=== PATIENT | male | born 1995 | race Caucasian/White ===

== ENCOUNTER 2017-08-07 09:35 | Emergency (ER) | payer SELFPAY ==
[2017-08-07 09:41] VITALS: BP 119/67; BMI 23.0
[2017-08-07] MEDS ORDERED: XYLOCAINE 1 % (PLAIN) ONE (11:00)
--- NOTE | 2017-08-07 11:01 | DR.GENAD ---
HPI - PCP Primary Care Physician: NFD - Complaint/Symptoms Chief Complaint Doctors Comments: Patient complains of lesion under left arm for the past two weeks getting worst. States he has gone to the hospital in [place] several times and he is taking Septra and using Bactroban oint without improvement. States he has been having fever and chills with severe pain in the left arm with problems elevating his arm due to pain. states he does not have a local doctor. States the pain is 10 of 10. He is unsure of his last tetanus. Chief Complaint:: PT WAS SEEN IN [facility] FOUR DAYS AGO AND HE WAS GIVEN ABX FOR ABCESS/REDNESS UNDER HIS LEFT ARM AND HE STATES IT IS GETTING WORSE". Self Treatment fo Chief Complaint: WARMCOMPRESSES... ABX, BACTROBAN - Nurses notes reviewed Nurses Notes Review: Yes - Source History Provided: Patient - Mode of Arrival Mode of Arrival: Ambulatory - Timing Onset of Chief Complaint: 07/26/17 Came on: Gradually - Duration Duration: Constant How lon Duration: Weeks - Location Location: left axillary - Severity Severity: Moderate - Modifying Factors Worsens:: movement Improves:: nothing PMH - PMH Past Medical History: No Past Surgical History: Yes Past Surgical History Comment: LEFT KNEE SURGERY TIMES FOUR .. - Family History History of Family Medical Conditions: Yes Family Medical History: Diabetes Mellitus, [place] - Social History Does patient currently use any type of tobacco product: Yes Have you used tobacco products in the last 12 months: Yes Type of Tobacco Use: Cigarettes How many years tobacco product used: 8 Does any household member use tobacco: No Alcohol Use: Rarely Do you use any recreational Drugs:: No Lives With: Family Lives Where: Home - infectious screening In the last 2 months have you had wt loss of >10#?: NO Have you had fever, night sweats or hemotysis?: No Have you traveled outside the country in the last 6 months?: No Isolation: Standard ROS - Review of Systems Constitutional: No Symptoms Reported, Chills, Fever Eyes: No Symptoms Reported ENTM: No Symptoms Reported Respiratoy: No Symptoms Reported Cardiovascular: No Symptoms Reported Gastrointestinal/Abdominal: No Symptoms Reported. negative: See HPI, Abdominal Pain, Constipation, Diarrhea, Nausea, Vomiting, Food Intolerance, Other Genitourinary: No Symptoms Reported Neurological: No Symptoms Reported Musculoskeletal: No Symptoms Reported Integumentary: Lesions (left axillary 3 cm lesion) Hematologic/Lymphatic: No Symptoms Reported Endocrine: No Symptoms Reported Psychiatric: No Symptoms Reported PE - Vital Signs Vitals: Temperature 98.1 F Pulse Rate 90 Respiratory Rate 20 Blood Pressure 119/67 O2 Sat by Pulse Oximetry 96 - General Limitations: No Limitations General Appearance: Alert, In Distress (moderate) - Head Head Exam: Normal Inspection, Atraumatic, Normocephalic - Eyes Eye exam: Normal Appearance, PERRL, EOMI. negative: Scleral Icterus, Conjunctival Injection, Nystagmus, Miosis, Mydrasis, Periorbital Swelling, Periorbital Tenderness, Other - ENT ENT Exam: Normal Exam, Normal Oropharynx, Normal External Ear Exam, Mucous Membranes Moist, TM's Normal Bilaterally External Ear Exam: Normal External Inspection TM/Canal Exam: Bilateral Normal Nose Exam: Normal Nose Exam Mouth Exam: Normal Inspection Throat Exam: Normal Inspection - Neck Neck Exam: Normal Inspection, Full ROM, Trachea Midline - Chest Chest Inspection: Normal Inspection, Symmetric Chest Wall Rise, Tenderness ( left axillary with erythema, 3 cm nodule left axillary, soft, tender; no discharge), Abscess - Respiratory Respiratory Exam: Normal Lung Sounds Bilat Respiratory Exam: Bilateral Clear to Auscultation - Cardiovascular Cardiovascular Exam: Regular Rate, Normal Rhythm, Normal Heart Sounds - Abdominal Exam Abdominal Exam: Normal Inspection, Normal Bowel Sounds, Soft Abdominal Tenderness: negative: RUQ, RLQ, LUQ, LLQ, Epigastrium, Suprapubic, Diffuse, Mild, Moderate, Severe, Other - Extremities Extremities Exam: Normal Inspection, Full ROM, Tenderness (left axillary tenderness), Normal Capillary Refill. negative: Edema, Joint Swelling, Calf Tenderness, Other - Back Back Exam: Normal Inspection, Full ROM - Neurologic Neurological Exam: Alert, Oriented X3, CN II-XII Intact, Normal Gait, Reflexes Normal - Psychiatric Psychiatric Exam: Normal Affect, Normal Mood - Skin Skin Exam: Warm, Dry, Intact, Normal Color ROR - Labs Reviewed Laboratory Results Reviewed?: Yes (all labs results reviewed and discussed with patient) Result Diagrams: 08/07/17 11:15 08/07/17 11:15 Laboratory: WBC 9.2 X10^3/uL (3.6-10.0) 08/07/17 11:15 RBC 4.85 X10^6/uL (4.7-6.0) 08/07/17 11:15 Hgb 15.3 g/dL (13.5-18.0) 08/07/17 11:15 Hct 43.6 % (42.0-54.0) 08/07/17 11:15 MCV 89.9 fL (80.0-100.0) 08/07/17 11:15 MCH 31.6 pg (27.0-34.0) 08/07/17 11:15 MCHC 35.1 g/dL (33.0-35.0) H 08/07/17 11:15 RDW 12.3 % (11.6-16.5) 08/07/17 11:15 Plt Count 140 X10^3/uL (150.0-450.0) L 08/07/17 11:15 MPV 9.8 fL (7.4-11.0) 08/07/17 11:15 Neut % 74.2 % (42.0-75.0) 08/07/17 11:15 Lymph % 16.1 % (21.0-51.0) L 08/07/17 11:15 [place] % 8.6 % (0.0-13.0) 08/07/17 11:15 Eos % 0.6 % (0.9-2.9) L 08/07/17 11:15 Baso % 0.5 % (0.2-1.0) 08/07/17 11:15 Neut # 6.8 x10^3/uL (2.2-4.8) H 08/07/17 11:15 Lymph # 1.5 X10^3/uL (1.3-2.9) 08/07/17 11:15 [place] # 0.8 x10^3/uL (0.3-0.8) 08/07/17 11:15 Eos # 0.1 x10^3/uL (0.0-0.2) 08/07/17 11:15 Baso # 0.0 X10^3/uL (0.0-0.1) 08/07/17 11:15 Absolute Nucleated RBC 0.1 /100WBC 08/07/17 11:15 Sodium 139 mmol/L (136-145) 08/07/17 11:15 Corrected Sodium TNP 08/07/17 11:15 Potassium 4.0 mmol/L (3.5-5.1) 08/07/17 11:15 Chloride 102 mmol/L (98-107) 08/07/17 11:15 Carbon Dioxide 29.6 mmol/L (21-32) 08/07/17 11:15 BUN 12 mg/dL (7-18) 08/07/17 11:15 Creatinine 0.97 mg/dL (0.70-1.30) 08/07/17 11:15 Est GFR (MDRD) Af Amer > 60 (>60) 08/07/17 11:15 Est GFR (MDRD) Non-Af > 60 (>60) 08/07/17 11:15 Glucose 83 mg/dL (65-99) 08/07/17 11:15 Lactic Acid 1.2 mmol/L (0.4-2.0) 08/07/17 11:15 Calcium 9.5 mg/dL (8.5-10.1) 08/07/17 11:15 Corrected Calcium TNP 08/07/17 11:15 Total Bilirubin 0.40 mg/dL (0.2-1.0) 08/07/17 11:15 AST 51 Units/L (15-37) H 08/07/17 11:15 ALT 63 Units/L (12-78) 08/07/17 11:15 Alkaline Phosphatase 93 Units/L (46-116) 08/07/17 11:15 Total Protein 7.9 g/dL (6.4-8.2) 08/07/17 11:15 Albumin 4.1 g/dL (3.4-5.0) 08/07/17 11:15 Globulin 3.8 g/dL (2.5-4.5) 08/07/17 11:15 Albumin/Globulin Ratio 1.1 Ratio (1.1-2.1) 08/07/17 11:15 Procedures - Incision and Drainage Blade Size: 11 I & D Procedure: betadine prep, sterile drapes applied, sterile dressing applied , gauze wick placed - Diagnosis Discharge Problem: Abscess of left axilla, Cellulitis of left axilla - Discharge Plan Disposition: 01 HOME, SELF-CARE Condition: Stable Prescriptions: Cephalexin [KEFLEX CAP 500 MG *] 500 mg PO TID #30 cap Clindamycin HCl 300 mg PO Q8H PRN #30 cap PRN Reason: - Follow ups/Referrals Follow ups/Referrals: NFD,None [Primary Care Provider] - 3 days ELIAS DELCARUZ [STAFF PHYSICIAN] - 3 days - Instructions Instructions: Abscess, [id number], Cellulitis, Adult, [id number]
[2017-08-07] MEDS ORDERED: TORADOL 60 MG VIAL IM ONE (11:04)
[2017-08-07 11:31] LABS: BASOPHILS % (AUTO) 0.5 % (0.2-1.0); EOSINOPHILS # (AUTO) 0.1 x10^3/uL (0.0-0.2); EOSINOPHILS % (AUTO) 0.6 % (0.9-2.9); HEMATOCRIT 43.6 % (42.0-54.0); HEMOGLOBIN 15.3 g/dL (13.5-18.0); LYMPHOCYTES # (AUTO) 1.5 X10^3/uL (1.3-2.9); LYMPHOCYTES % (AUTO) 16.1 % (21.0-51.0); MEAN CORPUSCULAR HEMOGLOBIN 31.6 pg (27.0-34.0); MEAN CORPUSCULAR HGB CONC 35.1 g/dL (33.0-35.0); MEAN CORPUSCULAR VOLUME 89.9 fL (80.0-100.0); MEAN PLATELET VOLUME 9.8 fL (7.4-11.0); MONOCYTES # (AUTO) 0.8 x10^3/uL (0.3-0.8); MONOCYTES % (AUTO) 8.6 % (0.0-13.0); NEUTROPHILS # (AUTO) 6.8 x10^3/uL (2.2-4.8); NEUTROPHILS % (AUTO) 74.2 % (42.0-75.0); PLATELET COUNT 140 X10^3/uL (150.0-450.0); RED BLOOD COUNT 4.85 X10^6/uL (4.7-6.0); RED CELL DISTRIBUTION WIDTH 12.3 % (11.6-16.5); WHITE BLOOD COUNT 9.2 X10^3/uL (3.6-10.0)
[2017-08-07 11:42] LABS: ALANINE AMINOTRANSFERASE 63 Units/L (12-78); ALBUMIN 4.1 g/dL (3.4-5.0); ALKALINE PHOSPHATASE 93 Units/L (46-116); ASPARTATE AMINO TRANSFERASE 51 Units/L (15-37); BLOOD UREA NITROGEN 12 mg/dL (7-18); CALCIUM 9.5 mg/dL (8.5-10.1); CARBON DIOXIDE 29.6 mmol/L (21-32); CHLORIDE 102 mmol/L (98-107); CREATININE 0.97 mg/dL (0.70-1.30); SODIUM 139 mmol/L (136-145); TOTAL PROTEIN 7.9 g/dL (6.4-8.2); eGFR BLACK RACES > 60 (>60); eGFR NON BLACK RACES > 60 (>60)
[2017-08-07] MEDS ORDERED: TORADOL 60 MG VIAL ONE (11:42)
[2017-08-07 11:46] LABS: LACTIC ACID 1.2 mmol/L (0.4-2.0)
[2017-08-07] MEDS ORDERED: ROCEPHIN VIAL 1 GM IM ONE (13:08)
[2017-08-07] MEDS ORDERED: ROCEPHIN VIAL 1 GM ONE (13:09)
== END 2017-08-07 13:23 | disposition home or self-care (01) ==
LOC: ER 10:11
PROC: 0X9540Z Drainage of Left Axilla with Drainage Device, Percutaneous Endoscopic Approach (ICD-10-PCS; principal; 2017-08-07)
DX: L02.412 Cutaneous abscess of left axilla (principal); L03.112 Cellulitis of left axilla; B95.61 Methicillin susceptible Staphylococcus aureus infection as the cause of diseases classified elsewhere
CPT/HCPCS: 10060; 36415; 80053; 83605; 85025; 87040; 87070; 87075; 87077; 87186; 87205; 96372; 99282; J0696; J1885; J2001